=== PATIENT | female | born 2000 | race African-American/Black ===

== ENCOUNTER 2024-09-18 15:38 | Emergency (ER) | payer OTHER, SELFPAY ==
--- NOTE | ~2024-09-18 | XR_ITS ---
CHEST RADIOGRAPH, PA AND LATERAL CLINICAL HISTORY: dizziness . COMPARISON: 02/08/2023 TECHNIQUE: PA and lateral views of the chest. FINDINGS The cardiomediastinal silhouette is unremarkable. The lungs are clear. S-shaped curvature of the thoracolumbar spine is identified. IMPRESSION: No focal infiltrate or effusion. Reviewed, dictated and finalized at location A.
[2024-09-18 15:55] VITALS: BP 141/80; PULSE 86; RESP 17; TEMP 36.6; O2SAT 100
--- NOTE | 2024-09-18 16:38 | ED.WEAKNESS ---
HPI - Weakness General Chief complaint: Weakness <Kassandra Whitlock PA-C - Last Filed: 09/20/24 10:21> Stated complaint: Feeling weak and dizzy with diff walking <Kassandra Whitlock PA-C - Last Filed: 09/20/24 10:21> Time Seen by Provider: 09/18/24 16:38 <Kassandra Whitlock PA-C - Last Filed: 09/20/24 10:21> Focused HPI: This is a 24 year old female that presents to the ER for lightheadedness. Feels nauseous, unsteady on her feet, dizzy. Reports history of anemia and concerned her hemoglobin is low. Reports history of blood transfusions. Reports she has von Willebrand disease. Reports she sees a mother tester at [facility] for this. GENERAL: Well-appearing, well-nourished, and in no acute distress. HEAD: Normocephalic, atraumatic. CHEST: Clear to auscultation. ?No respiratory distress. HEART: Regular rate and rhythm.? NEURO: ?Alert and oriented x3. Patient screened in triage and initial orders placed.? ?Additional care and disposition to be based upon?diagnostic testing and treatment. <Kassandra Whitlock PA-C - Last Filed: 09/20/24 10:21> Focused HPI: This is a 24 year old female that presents to the ER for lightheadedness. Feels nauseous, unsteady on her feet, dizzy. Reports history of anemia and concerned her hemoglobin is low. Reports history of blood transfusions. Reports she has Von Willebrand disease. Reports she sees a mother tester at [facility] for this. GENERAL: Well-appearing, well-nourished, and in no acute distress. HEAD: Normocephalic, atraumatic. CHEST: Clear to auscultation. ?No respiratory distress. HEART: Regular rate and rhythm.? NEURO: ?Alert and oriented x3. Patient screened in triage and initial orders placed.? ?Additional care and disposition to be based upon?diagnostic testing and treatment. <Viv Moreno APRN - Last Filed: 09/18/24 19:49> History of Present Illness HPI Narrative: I agree with the HPI above. <Viv Moreno APRN - Last Filed: 09/18/24 19:49> Related Data Allergies/Adverse reactions: Allergies Allergy/AdvReac Type Severity Reaction Status Date / Time No Known Allergies Allergy Verified 09/18/24 15:40 <Kassandra Whitlock PA-C - Last Filed: 09/20/24 10:21> Review of Systems Review of Systems: All systems reviewed & are unremarkable except as noted in HPI and below <Viv Moreno APRN - Last Filed: 09/18/24 19:49> PMFSH Past Medical History Medical History: Medical History (Updated 09/20/24 @ 10:21 by Kassandra Whitlock PA-C) History of von Willebrand disease <Kassandra Whitlock PA-C - Last Filed: 09/20/24 10:21> Exam Narrative: GENERAL: Well appearing, well-nourished, non-toxic, in no acute distress. HEAD: Normocephalic, atraumatic. NECK: Supple. No adenopathy, no masses. RESPIRATORY: Airway patent, respirations nonlabored. Clear to auscultation bilaterally, no rales, rhonchi, wheezing. CARDIOVASCULAR: Regular rate and rhythm without murmurs, rubs, or gallops. Peripheral pulses 2+ and equal bilaterally. ABDOMINAL: Soft, nontender, nondistended, no hepatosplenomegaly. Normoactive BS. MUSCULOSKELETAL: Moves all extremities. Strength/ROM intact without gross deformities. SKIN: Warm, dry, normal color. No rashes. NEURO: A&O X3. Speech clear. Cranial nerves II-XII intact. No ataxic movements. PSYCHIATRIC: Appropriate mood and affect. Normal interaction. <Viv Moreno, STEPHANIE - Last Filed: 09/18/24 19:49> Course Vital Signs Vital signs: Vital Signs Temperature 97.8 F 09/18/24 15:55 Pulse Rate 86 09/18/24 15:55 Respiratory Rate 17 09/18/24 15:55 Blood Pressure 141/80 H 09/18/24 15:55 Pulse Oximetry 100 09/18/24 15:55 Oxygen Delivery Room Air 09/18/24 15:55 Temperature 97.8 F 09/18/24 15:55 Pulse Rate 92 09/18/24 18:52 Respiratory Rate 17 09/18/24 15:55 Blood Pressure 141/80 H 09/18/24 15:55 Pulse Oximetry 100 09/18/24 15:55 Oxygen Delivery Room Air 09/18/24 15:55 <Kassandra Whitlock PA-C - Last Filed: 09/20/24 10:21> Vital Signs Temperature 97.8 F 09/18/24 15:55 Pulse Rate 86 09/18/24 15:55 Respiratory Rate 17 09/18/24 15:55 Blood Pressure 141/80 H 09/18/24 15:55 Pulse Oximetry 100 09/18/24 15:55 Oxygen Delivery Room Air 09/18/24 15:55 Temperature 97.8 F 09/18/24 15:55 Pulse Rate 92 09/18/24 18:52 Respiratory Rate 17 09/18/24 15:55 Blood Pressure 141/80 H 09/18/24 15:55 Pulse Oximetry 100 09/18/24 15:55 Oxygen Delivery Room Air 09/18/24 15:55 <Viv Moreno APRN - Last Filed: 09/18/24 19:49> MDM - Weakness MDM Narrative Medical decision making narrative: This is a 24 year old female that presents to the ER for lightheadedness. Feels nauseous, unsteady on her feet, dizzy. Reports history of anemia and concerned her hemoglobin is low. Reports history of blood transfusions. Reports she has Von Willebrand disease. Reports she sees a mother tester at [facility] for this. Labs Ordered: CBC, CMP, TSH, type and screen Imaging Ordered: Chest x-ray Medications Ordered: none necessary Results: Patient's chest x-ray indicates The cardiomediastinal silhouette is unremarkable. The lungs are clear. S-shaped curvature of the thoracolumbar spine is identified. Diagnosis: Generalized weakness Patient Education/Shared MDM: Results has lab work and imaging shared with patient. Patient strongly advised to maintain hydration status upon discharge and follow-up with her PCP and Hematology as soon as possible. She will not be discharged home with any new prescriptions. Strict return precautions provided. Patient verbalized understanding and is in agreement with plan. Vital signs stable at time of discharge. All questions answered. <Viv Moreno APRN - Last Filed: 09/18/24 19:49> Differential Diagnosis Differential diagnosis: Likely anemia, hypothyroidism and dehydration <Viv Moreno APRN - Last Filed: 09/18/24 19:49> Lab Data Attestation: I reviewed the patient's lab results. <Viv Moreno, STEPHANIE - Last Filed: 09/18/24 19:49> Result diagrams: 09/18/24 17:20 09/18/24 17:20 <Kassandra Whitlock PA-C - Last Filed: 09/20/24 10:21> Labs: Lab Results 09/18/24 09/18/24 09/18/24 Range/Units 17:20 18:03 18:46 WBC 8.0 (4.5-10.0) K/mm3 RBC 4.56 (4.2-5.4) M/mm3 Hgb 12.3 (12.0-15.0) g/dL Hct 38.8 (37.0-47.0) % MCV 85.1 (80-100) fl MCH 27.0 (26-34) pg MCHC 31.7 L (32-36) g/dl RDW 13.2 (11.5-14.5) % Plt Count 274 (150-375) k/mm3 MPV 10.5 H (7.4-10.4) fl Immature Gran % (Auto) 0.2 (0-0.5) % Neut % (Auto) 59.2 (45.5-73.1) % Lymph % (Auto) 32.6 (18.3-44.2) % Corson % (Auto) 6.1 (2.6-8.5) % Eos % (Auto) 1.4 (0-4.4) % Baso % (Auto) 0.5 (0.2-1.2) % Lymph # (Auto) 2.62 (0.9-3.2) K/mm3 Corson # (Auto) 0.5 (0.1-0.6) K/mm3 Eos # (Auto) 0.1 (0-0.3) K/mm3 Baso # (Auto) 0.0 (0.0-0.1) K/mm3 Abs Immat Gran (auto) 0.02 (0.00-0.031) K/mm3 Absolute Neuts (auto) 4.8 (1.3-6.7) K/mm3 Absolute Nucleated RBC 0.000 (0.0-0.012) K/mm3 Nucleated RBC % 0.0 (0.0-0.2) % Sodium 138 (137-145) mmol/L Potassium 3.8 (3.4-5.0) mmol/L Chloride 102 (98-107) mmol/L Carbon Dioxide 26 (22-30) mmol/L Anion Gap 10 (4-12) mmol/L BUN 10 (7-17) mg/dL Creatinine 0.64 L (0.7-1.0) mg/dL Estim Creat Clear Calc 102 ml/min Estimated GFR > 60 (59 - ) Glucose 90 (65-110) mg/dL Calcium 9.4 (8.4-10.2) mg/dL Total Bilirubin 0.3 (0.2-1.3) mg/dL AST 25 (14-36) U/L ALT 22 (6-35) U/L Alkaline Phosphatase 70 (38-126) U/L Total Protein 9.0 H (6.3-8.2) g/dL Albumin 4.8 (3.5-5.1) g/dL TSH (Reflex) 1.150 (0.465-4.68) uIU/mL Influenza A (RT-PCR) Negative (Negative) Influenza B (RT-PCR) Negative (Negative) RSV (RT-PCR) Negative (Negative) SARS-CoV-2 RNA (RT-PCR) Negative (Negative) Blood Type A Positive Antibody Screen Negative <Kassandra Whitlock PA-C - Last Filed: 09/20/24 10:21> Lab Results 09/18/24 09/18/24 09/18/24 Range/Units 17:20 18:03 18:46 WBC 8.0 (4.5-10.0) K/mm3 RBC 4.56 (4.2-5.4) M/mm3 Hgb 12.3 (12.0-15.0) g/dL Hct 38.8 (37.0-47.0) % MCV 85.1 (80-100) fl MCH 27.0 (26-34) pg MCHC 31.7 L (32-36) g/dl RDW 13.2 (11.5-14.5) % Plt Count 274 (150-375) k/mm3 MPV 10.5 H (7.4-10.4) fl Immature Gran % (Auto) 0.2 (0-0.5) % Neut % (Auto) 59.2 (45.5-73.1) % Lymph % (Auto) 32.6 (18.3-44.2) % Cors[place] % (Auto) 6.1 (2.6-8.5) % Eos % (Auto) 1.4 (0-4.4) % Baso % (Auto) 0.5 (0.2-1.2) % Lymph # (Auto) 2.62 (0.9-3.2) K/mm3 Corson # (Auto) 0.5 (0.1-0.6) K/mm3 Eos # (Auto) 0.1 (0-0.3) K/mm3 Baso # (Auto) 0.0 (0.0-0.1) K/mm3 Abs Immat Gran (auto) 0.02 (0.00-0.031) K/mm3 Absolute Neuts (auto) 4.8 (1.3-6.7) K/mm3 Absolute Nucleated RBC 0.000 (0.0-0.012) K/mm3 Nucleated RBC % 0.0 (0.0-0.2) % Sodium 138 (137-145) mmol/L Potassium 3.8 (3.4-5.0) mmol/L Chloride 102 (98-107) mmol/L Carbon Dioxide 26 (22-30) mmol/L Anion Gap 10 (4-12) mmol/L BUN 10 (7-17) mg/dL Creatinine 0.64 L (0.7-1.0) mg/dL Estim Creat Clear Calc 102 ml/min Estimated GFR > 60 (59 - ) Glucose 90 (65-110) mg/dL Calcium 9.4 (8.4-10.2) mg/dL Total Bilirubin 0.3 (0.2-1.3) mg/dL AST 25 (14-36) U/L ALT 22 (6-35) U/L Alkaline Phosphatase 70 (38-126) U/L Total Protein 9.0 H (6.3-8.2) g/dL Albumin 4.8 (3.5-5.1) g/dL TSH (Reflex) 1.150 (0.465-4.68) uIU/mL Influenza A (RT-PCR) Negative (Negative) Influenza B (RT-PCR) Negative (Negative) RSV (RT-PCR) Negative (Negative) SARS-CoV-2 RNA (RT-PCR) Negative (Negative) Blood Type A Positive Antibody Screen Negative <Viv Moreno APRN - Last Filed: 09/18/24 19:49> Imaging Data Attestation: I personally reviewed and interpreted this imaging study as follows: <Viv Moreno APRN - Last Filed: 09/18/24 19:49> Radiologist's impression: Impressions Chest X-Ray 09/18/24 17:04 IMPRESSION: No focal infiltrate or effusion. <Viv Moreno APRN - Last Filed: 09/18/24 19:49> Critical Care Time Critical Care Time Critical Care Time: No <Kassandra Whitlock PA-C - Last Filed: 09/20/24 10:21> Discharge Plan Discharge Clinical Impression: Weakness generalized <AUDREY Marquez Last Filed: 09/20/24 10:21> Patient Disposition: Home <Kassandra Whitlock PA-C - Last Filed: 09/20/24 10:21> Condition: Stable <Kassandra Whitlock PA-C - Last Filed: 09/20/24 10:21> Instructions: Antibiotic Form, Fatigue (ED) <AUDREY Marquez Last Filed: 09/20/24 10:21> Additional Instructions: Please return to the ER with any worsening symptoms. Follow-up with primary care provider as soon as possible. Take all medications as prescribed, including regularly scheduled medications. <AUDREY Marquez Last Filed: 09/20/24 10:21> Patient Language: Thai <AUDREY Marquez Last Filed: 09/20/24 10:21> Follow-up/Referrals: PHYSICIAN NOT ON STAFF,NONSTAFF [Primary Care Provider] - <Kassandra Whitlock PA-C - Last Filed: 09/20/24 10:21> Stand Alone Forms: Work/School Release IP <Kassandra Whitlock PA-C - Last Filed: 09/20/24 10:21> Time of Disposition: 19:46 <Kassandra Whitlock PA-C - Last Filed: 09/20/24 10:21> 19:46 <Viv Moreno APRN - Last Filed: 09/18/24 19:49>
--- NOTE | 2024-09-18 16:39 | ECG_ITS ---
Test Date: 2024-09-18 18:01:34 Measurements Intervals Douglas Rate: 83 P: 66 LA: 125 QRS: 17 QRSD: 75 T: 30 QT: 335 QTc: 395 Interpretive Statements SINUS RHYTHM WITH SINUS ARRHYTHMIA No previous ECG available for comparison Electronically Signed On 09-19-2024 10:05:27 CDT by Alex Echols M.D.
[2024-09-18 17:35] LABS: Basophils Percent Auto 0.5 % (0.2-1.2); Eosinophils Absolute Auto 0.1 K/mm3 (0-0.3); Eosinophils Percent Auto 1.4 % (0-4.4); Hematocrit 38.8 % (37.0-47.0); Hemoglobin 12.3 g/dL (12.0-15.0); Immature Granulocyte Absolute 0.02 K/mm3 (0.00-0.031); Immature Granulocyte Percent A 0.2 % (0-0.5); Lymphocytes Absolute Auto 2.62 K/mm3 (0.9-3.2); Lymphocytes Percent Auto 32.6 % (18.3-44.2); Mean Corpuscular HGB Conc 31.7 g/dl (32-36); Mean Corpuscular Volume 85.1 fl (80-100); Mean Platelet Volume 10.5 fl (7.4-10.4); Monocytes Absolute Auto 0.5 K/mm3 (0.1-0.6); Monocytes Percent Auto 6.1 % (2.6-8.5); Neutrophils Absolute Auto 4.8 K/mm3 (1.3-6.7); Neutrophils Percent Auto 59.2 % (45.5-73.1); Platelet Count Result 274 k/mm3 (150-375); Red Blood Count 4.56 M/mm3 (4.2-5.4); Red Cell Distribution Width 13.2 % (11.5-14.5)
[2024-09-18 17:46] LABS: Alanine Aminotransferase 22 U/L (6-35); Albumin Level 4.8 g/dL (3.5-5.1); Alkaline Phosphatase 70 U/L (38-126); Anion Gap 10 mmol/L (4-12); Aspartate Amino Transferase 25 U/L (14-36); Bilirubin,Total 0.3 mg/dL (0.2-1.3); Blood Urea Nitrogen 10 mg/dL (7-17); Calcium 9.4 mg/dL (8.4-10.2); Carbon Dioxide 26 mmol/L (22-30); Chloride 102 mmol/L (98-107); Estimated CRCL calculation 102 ml/min; Estimated Glomerular Filt Rate > 60; Glucose 90 mg/dL (65-110); Potassium 3.8 mmol/L (3.4-5.0); Sodium 138 mmol/L (137-145)
--- OUTSIDE RECORDS SUMMARY | 2024-09-18 17:57 | XMS_ITS | Encounter Summary ---
Author Organization [facility] Address [address] [facility] [place] [address] Support Name Relationship Address Phone Pt. Val Sevilla Personal Relationship [address] [place] [address] Emma Sevilla Personal Relationship [address] [place] [address] Care Team Providers Care Dermatology Specialist Name Role Phone Josesito Clark MD Primary Care Provider Yajaira Zarate DO Unavailable [phone] Tayo Stewart MD Primary Care Provider [phone] Yajaira Zarate DO Primary Care Provider [phone] Tayo Stewart MD Primary Care Provider [phone] Carolyn Maynard MD Unavailable Tayo Stewart MD Primary Care Provider [phone] Encounter Details Date Type Department Care Team (Late st Contact Info) Description 12/05/2014 Telephone [facility] Pediatrics - [facility] [address] [place] [phone] Josesito Clark MD [address] [place] [phone] Social History Tobacco Use Types Packs/Day Years Used Date Smoking Tobacco: Never Alcohol Use Standard Drinks/Week Comments No 0 (1 standard drink = 0.6 oz pur e alcohol) Comments No Sex and Gender Information Value Date Recorded Sex Assigned at Not on file Legal Sex Female 12:54 PM CDT Gender Identity Not on file Sexual Orientation Not on file 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 Not on file Not on file Not on file documented as of this encounter Plan of Treatment Not on file documented as of this encounter Visit Diagnoses Not on filedocumented in this encounter Care Teams Dermatology Specialist Relationship Specialty Start Date End Date Josesito Clark MD [address] [place] [phone] PCP - General Pediatrics 11/11/14 10/12/15 Tayo Stewart MD [address] [place] [id number] PCP - General Pediatrics 10/13/15 01/04/16 Yajaira Zarate DO [address] [place] [phone] PCP - General Student Resident 01/05/16 04/03/16 Tayo Stewart MD [address] [place] [id number] PCP - General Pediatrics 04/04/16 10/08/18 Tayo Stewart MD [address] [place] [id number] PCP - General Pediatrics 10/09/18 09/28/21 Yajaira Zarate DO [address] [place] [phone] Resident Student Resident 11/11/14 11/29/16 Carolyn Maynard MD [address] [place] [phone] Resident Student Resident 11/30/16 09/29/21 documented as of this encounter
--- OUTSIDE RECORDS SUMMARY | 2024-09-18 17:57 | XMS_ITS | Encounter Summary ---
Author Organization [facility] Address [address] [facility] [address] Support Name Relationship Address Phone Pt. Val Sevilla Personal Relationship [address] [place] [address] Emma Sevilla Personal Relationship [address] [place] [address] Care Team Providers Care Nutrition Technician Name Role Phone Carolyn Maynard MD Unavailable Tayo Stewart MD Primary Care Provider [phone] Reason for Visit * Reason Onset Date Comments Results 10/15/2018 Encounter Details Date Type Department Care Team (Late st Contact Info) Description 10/15/2018 Telephone [facility] Pediatrics - [facility] [address] [place] [id number] Tayo Stewart MD [address] [place] [phone] Results Social History Tobacco Use Types Packs/Day Years Used Date Smoking Tobacco: Never Smokeless Tobacco: Never Alcohol Use Standard Drinks/Week Comments [...] on file documented as of this encounter Miscellaneous Notes * Telephone Encounter - Kathi Romero - 10/15/2018 2:52 PM CDT Val Sevilla's mother is calling for lab results collected on 10/10/18. Call back number verified. Requested to speak to Dr. Stewart, informed mom that the first available provider would reach out to go over results. documented in this encounter Plan of Treatment Not on file documented as of this encounter Visit Diagnoses Not on filedocumented in this encounter Care Teams Nutrition Technician Relationship Specialty Start Date End Date Tayo Stewart MD [address] [place] [phone] PCP - General Pediatrics 10/09/18 09/28/21 Carolyn Maynard MD [address] [place] [phone] Resident Student Resident 11/30/16 09/29/21 documented as of this encounter
--- OUTSIDE RECORDS SUMMARY | 2024-09-18 17:57 | XMS_ITS | Encounter Summary ---
Author Organization [facility] Address [address] [place] [address] Support Name Relationship Address Phone Pt. Val Sevilla Personal Relationship [address] [place] [address] Emma Sevilla Personal Relationship [address] [place] [address] Care Team Providers Care Powder Press Operator Name Role Phone Tayo Stewart MD Primary Care Provider [phone] Carolyn Maynard MD Unavailable Tayo Stewart MD Primary Care Provider [phone] Reason for Visit * Reason Onset Date Comments Refill Request 12/01/2017 Encounter Details Date Type Department Care Team (Late st Contact Info) Description 12/01/2017 Refill [facility] - [facility] [address] [place] [address] Tayo Stewart MD [address] [place] [phone] Refill Request Social History Tobacco Use Types Packs/Day Years [...] encounter Miscellaneous Notes * Telephone Encounter - To, Debi Platt MD - 12/01/2017 4:08 PM CDT Called mother to discuss medication. Val has been on topamax for many years for her migraine headaches and it has been well controlled with minimal side effects. Prescription refilled. Patient hasfollow up with Dr. Stewart in 20 days. Debi Ryan MD 12/01/2017 4:08 PM * Telephone Encounter - Christopher Burton - 12/01/2017 3:42 PM CDT Pharmacy fax request received. Medication(s) to be refilled: topiramate (TOPAMAX) 25 MG tablet Last well child check up: 12/08/17 Pharmacy verified in [facility]. Future Appointments Date Time Provider Department Center 12/11/2017 8:20 AM Tayo Stewart MD [id number] documented in this encounter Plan of Treatment Not on file documented as of this encounter Visit Diagnoses Not on filedocumented in this encounter Care Teams Powder Press Operator Relationship Specialty Start Date End Date Tayo Stewart MD [address] [place] [phone] PCP - General Pediatrics 04/04/16 10/08/18 Tayo Stewart MD [address] [place] [phone] PCP - General Pediatrics 10/09/18 09/28/21 Carolyn Maynard MD [address] [place] [phone] Resident Student Resident 11/30/16 09/29/21 documented as of this encounter
--- OUTSIDE RECORDS SUMMARY | 2024-09-18 17:57 | XMS_ITS | Clinical Summary ---
Author Organization [facility] C Address [address] [place] [address] Care Team Providers Care Curing Press Maintainer Name Role Phone Michelle Valentino MD Primary Care Pro vider MalecekMariela MD Unavailable [phone] Allergies No known active allergies Medications SUMAtriptan (IMITREX) 50 mg tabletIndications :Migraine Take 1 tablet (50 mg total) by mouth once as needed for migraine (headache) May repeat one time after 2 hours if needed. 9 tablet 5 4 11/13/19 25 Active ketorolac (TORADOL) 10 mg tabletIndications :Postoperative Acute Pain Take 1 tablet (10 mg total) by mouth every 6 (six) hours as needed for pain Take 2 pills one hour prior to procedure, then use as directed for post-procedur al pain. 20 tablet 3 4 Active fremanezumab-vfrm (Ajovy Autoinjector) 225 mg/1.5 mL auto-injector subcutaneous auto-injectorIndi cations:Migraine without aura and without status migrainosus, not intractable Inject 1.5 mL (225 mg total) under the skin every 30 (thirty) days 1.5 mL 4 5 Active sertraline (Zoloft) 50 mg tabletIndications :Anxiety with Depression,depres emiliano Take 1 tablet (50 mg total) by mouth daily 90 tablet 1 5 Active Hospital, Clinic, or Other Facility Administered Medication Ordered Dose Route Frequency Start Date End Date Status levonorgestreL (MIRENA) 21 mcg/24 hours (8 yrs) 52 mg IUDIndications:Preg natalia Contraception intrauterine Continuous (implanted device) 01/17/2023 Active Active Problems Problem Noted Date Diagnosed Date Foot deformity, bilateral 06/03/2024 Assessment & Plan (06/03/2024 6:48 PM TELEVISION SCHEDULE COORDINATOR): Refer to orthopedics, Dr. Isbell Bilateral bunions 06/03/2024 Assessment & Plan (06/03/2024 6:48 PM TELEVISION SCHEDULE COORDINATOR): Plan as above Generalized anxiety disorder 03/27/2024 Assessment & Plan (03/27/2024 8:20 AM TELEVISION SCHEDULE COORDINATOR): Chronic, uncontrolled. Start lexapro 5 mg daily. Discussed side effects and 4-6 week timeframe to see full benefit. She is due for a physical in May. She will plan to follow up then. She is also requesting testing accommodations for school, referral to psychiatry for further evaluation and management to determine what accommodations are necessary. Right knee pain 04/27/2022 Assessment & Plan (05/25/2022 9:45 AM TELEVISION SCHEDULE COORDINATOR): Follow-up with Orthopedics Assessment & Plan (04/27/2022 9:53 PM TELEVISION SCHEDULE COORDINATOR): Worsening pain. Suspect meniscal tear or injury. Check x ray and refer to sports medicine/ orthopedics at [facility] Iron deficiency anemia due to chronic blood loss 01/03/2022 Routine medical exam 05/22/2021 Assessment & Plan (06/03/2024 6:48 PM TELEVISION SCHEDULE COORDINATOR): Plan as above Assessment & Plan (06/12/2023 3:55 PM TELEVISION SCHEDULE COORDINATOR): Patient recommended exercise regularly, eat a nutritional diet. Take medications as prescribed. Labs/urine for completion. Declined scheduling 1 year apt. Assessment & Plan (05/25/2022 9:46 AM TELEVISION SCHEDULE COORDINATOR): Reviewed health maintenance issues- diet, exercise, safety issues, smoking status, alcohol use, immunizations, mammogram (if over age 40), and Pap smear. Reviewed medical problems and list of medications Assessment & Plan (05/22/2021 10:57 AM TELEVISION SCHEDULE COORDINATOR): Reviewed health maintenance issues- diet, exercise, safety issues, smoking status, alcohol use, immunizations, breast exam, papsmear, Reviewed medical problems and medication list. BMI 26.0-26.9,adult 05/22/2021 Assessment & Plan (05/25/2022 8:51 AM TELEVISION SCHEDULE COORDINATOR): BMI Follow-up includes: nutrition counseling, exercise counseling and education provided. Assessment & Plan (04/27/2022 9:53 PM TELEVISION SCHEDULE COORDINATOR): Reviewed diet- decrease caloric intake, decrease portion size, avoid snacking, and exercise most days of the week with regular walking as tolerated. Assessment & Plan (05/22/2021 10:57 AM TELEVISION SCHEDULE COORDINATOR): Reviewed diet- decrease caloric intake, decrease portion size, avoid snacking, and exercise most days of the week with regular walking as tolerated. Positive depression screening 04/08/2020 Overview (10/06/2020): PHQ9 score is 11, negative SI Last Assessment & Plan: Tito's PHQ-9 today in clinic was elevated, and she stated seh has more sad days than happy days. She denies any suicidal ideation or thoughts of self-harm. She is plugged in with resources at school, and feels comfortable continuing with those resources. Plan: - continue current resources - return to clinic if any further concerns arise Rash of foot 04/08/2020 Overview (10/06/2020): Last Assessment & Plan: Tito's rash on her feet is more consistent with dry skin than a fungal infection. This is evidenced by physical exam and history that the rash has gotten better with the use of vaseline. Plan: Continue vaseline use Abdominal pain, bilateral upper quadrant 020 Overview (10/06/2020): Last Assessment & Plan: ~2 week hx of bilateral upper quadrant abdominal tenderness and fullness. Most likely due to anxiety concerns, perhaps related to restarting OCPs ~3 weeks ago. No masses noted on exam. Unlikely to be PUD given no report of blood in stool, also without symptoms of fatigue or pallor on exam to suggest anemia. Plan: -Reconnect with counselor -Contacted counseling and given list of community resources for help with anxiety -Follow up if pain/fullness does not resolve. -Screening CBC Anxiety 11/22/2019 Overview (10/06/2020): Last Assessment & Plan: Tito has a long hx of anxiety. She feels anxious most days. When her anxiety worsens, she sometimes feels chest pain and palpitations. They are relieved by resting and deep breathing. She was seen by cardiology in 10/2018 and no cardiac concerns were noted. Chest pain seems most likely to be caused by anxiety. Current abdominal pain is likely also related to anxiety, and is likely a psychosomatic symptoms. She has seen a counselor which has been helpful but it has been several months since she met with him. Plan: -Reconnect with counselor -Referral to counseling center for additional resources. Assessment & Plan (06/12/2023 3:46 PM TELEVISION SCHEDULE COORDINATOR): Chronic problem: Patient recommended to continue Effexor as prescribed. Monitor for concerns. Von Willebrand disease, type I 12/11/2017 Overview (10/06/2020): Last Assessment & Plan: Nosebleeds have resolved. Has not had bleeding issues for months. Takes DDAVP when bleeding occurs. Plan: -Continue to monitor -DDAVP PRN bleeding Assessment & Plan (06/12/2023 3:48 PM TELEVISION SCHEDULE COORDINATOR): Chronic problem: Patient to follow with Hematology, Dr. Gutierrez as recommended Assessment & Plan (05/25/2022 9:46 AM TELEVISION SCHEDULE COORDINATOR): Follow-up with Hematology Assessment & Plan (05/22/2021 10:58 AM TELEVISION SCHEDULE COORDINATOR): Continue DDAVP; follow up with heme-oncology Accommodative component in esotropia 07/14/2017 Migraine headache without aura 03/06/2014 Overview (10/06/2020): Last Assessment & Plan: Well controlled with topamax. Not taking maxalt due to lack of breakthrough migraines. Assessment & Plan (11/13/2023 12:30 PM CDT): The patient is a 23-year-old Afro-Surinamese female with migraine headaches. At this point she is doing well when she does remember to take the Ajovy. She uses sumatriptan and Toradol for rescue purposes. We are not going to make any changes today though we did discuss dosing options. I will plan on seeing her back in 6 months. This visit required complex medical management through an ongoing care relationship with the patient. Assessment & Plan (06/12/2023 3:47 PM TELEVISION SCHEDULE COORDINATOR): Chronic problem: Follow with Neurology, Dr. Gongora and take Imitrex, Ajovy as prescribed. Monitor for concerns Assessment & Plan (11/28/2022 3:10 PM CDT): The patient is a 22-year-old Afro-Surinamese female with migraine headaches. At this point she is failed Topamax and venlafaxine. I am going to try her on Ajovy. I went ahead and gave her 1st sample today. I will see her back in a couple months. Assessment & Plan (06/02/2022 8:38 AM TELEVISION SCHEDULE COORDINATOR): The patient is a 22-year-old female with migrainous headaches occurring 1-2 times per week. At this point she is been intolerant of Topamax. Because of her youth and relatively low blood pressure, I am going to try to avoid beta-blockers. Because of her abnormal sleep wake schedule we will also avoid tricyclic antidepressants. I am going to try her on low-dose venlafaxine. We went over the side effect profile. If she has any adverse effect I recommended she simply discontinue it. In that case, we will likely try her on ACGRP blocking medication like Aimovig. I am given her sumatriptan 50 mg tablets to try for rescue purposes. I will see her back in a few months though I encouraged her to contact me in the interim with any concerns or questions. Assessment & Plan (05/22/2021 10:58 AM TELEVISION SCHEDULE COORDINATOR): Continue current medications and call if problems or side effects. WC (well child check) 03/06/2014 Overview (10/06/2020): Last Assessment & Plan: Tito Sevilla is here for her adolescent well child check and has normal growth with good interval weight gain and normal development. Immunizations up to date Dental referral for prevention Age appropriate anticipatory guidance provided Return in about 1 year (around 11/21/2020) for annual adult visit. Discussed transition to adult medicine provider HIV, chlamydia, gonorrhea screening Pes planus 09/30/2013 Overview (10/06/2020): Last Assessment & Plan: Tito has pes planus of both feet, for which she had surgery at age 10. Feels as though the curvature is getting worse again. It does not hurt or get in the way of activities. Plan: - referral to orthopedics Hyperopia 10/21/2011 Overview (10/06/2020): Last Assessment & Plan: Followed by [facility] ophtho and sees seo coordinator for other vision problems. Wears glasses. Immunizations Immunization Administration Dates Next Due DTaP 09/22/2004, 2,2000,06/09,2000 Flucelvax Influenza Quad 03/02/2019 HPV, Quadrivalent 12/04/2014,03/06/2014 HPV9 10/13/2015 Hep A, Pediatric 03/11/2013,10/14/2008 Hep B Vaccine 02/21/2023 Hep B, Adolescent or Pediatric 2000,1999,2000 Hib (PRP-D) 12/24/2001, 1,2000,03/27 IPV 09/22/2004, 2,2000,03/27 Influenza, Quadrivalent, Lexis l Culture-based MDCK, Preservative Free, Antibiotic Free, Intramuscular 04/13/2022,04/10/2021,04/04/2020 Influenza, Quadrivalent, Spl it, Preservative Free, Intramuscular 03/17/2023,03/10/2017,05/05/2016,03/06 Influenza, Trivalent, Cell Culture-based MDCK, Preservative Free, Antibiotic Free, Intramuscular 04/13/2022,04/10/2021,04/04/2020,03/02 Influenza, Trivalent, Preser vative Free, Intramuscular 03/07/2024 Influenza, Unspecified 03/15/2023(Deferr ed: Patient Refused),04/13/2022,04/28/2021, 013 MMR 09/22/2004,05/24/2001 Meningococcal MCV4P (Menactra) 12/08/2016 Meningococcal Polysaccharide (Menomune) 12/22/2010 PPD TEST 05/23/2007, 8,06/09/2005,06/09 Pneumococcal Conjugate 7-Valent 2000,07/03,2000 Pneumococcal Conjugate, Unspecified 2000,0 2000,2000 Tdap 12/04/2020,12/22/2010 Varicella 10/14/2008,01/08/2001 Surgical History Surgery Date Site/Laterality Comments FOOT SURGERY 05/15/2009 - 05/14/2010 Bilateral Medical History Medical History Date Comments GERD (gastroesophageal reflux disease) Migraine headache Scoliosis Von Willebrand disease (HCC) Anxiety Anemia Von Willebrand disease (HCC) Family History Medical History Relation Name Comments Nephrolithiasis Father Aneurysm Maternal Grandfather Kidney disease Maternal Grandmother Hyperlipidemia Mother Hypertension Mother Scoliosis Sister Relation Name Status Comments Father Alive Maternal Grandfather Maternal Grandmother Alive Mother Alive Sister Alive Social History Tobacco Use Types Packs/Day Years Used Date Smoking Tobacco: Never Smokeless Tobacco: Never Tobacco Cessation:Counseling Given: Not Answered AUDIT-C Answer Date Recorded Q1: How often do you have a drink containing alc ohol? 2-3 times a week 06/02/2022 Q2: How many drinks containi ng alcohol do you have on a typical day when you are drinking? 1 or 2 06/02/2022 Q3: How often do you have si x or more drinks on one occasion? Never 06/02/2022 PHQ-2 Answer Date Recorded PHQ-2 Total Score (If total score is 3 or more points, staff should administer the PHQ-9) 0 06/03/2024 Personal Safety Answer Date Recorded Getting School Help Needed Denies 04/26 Comments No Sex and Gender Information Value Date Recorded Sex Assigned at Not on file Legal Sex Female 2:43 AM TELEVISION SCHEDULE COORDINATOR Gender Identity Not on file Sexual Orientation Not on file Obstetrics History Last Filed Vital Signs Vital Sign Reading Time Taken Comments Blood Pressure 143/70 06/18/2024 2:37 PM TELEVISION SCHEDULE COORDINATOR Pulse 87 06/18/2024 2:37 PM TELEVISION SCHEDULE COORDINATOR Temperature 37 C (98.6 F) 06/18/2024 2:37 PM TELEVISION SCHEDULE COORDINATOR Respiratory Rate 16 06/18/2024 2:37 PM TELEVISION SCHEDULE COORDINATOR Oxygen Saturation 95% 06/18/2024 2:37 PM TELEVISION SCHEDULE COORDINATOR Inhaled Oxygen Concentration - - Weight 73.6 kg (162 lb 3.2 oz) 06/18/2024 2:37 P M TELEVISION SCHEDULE COORDINATOR Height 157.5 cm (5' 2 ) 06/18/2024 2:37 PM TELEVISION SCHEDULE COORDINATOR Body Mass Index 29.67 06/18/2024 2:37 PM TELEVISION SCHEDULE COORDINATOR Plan of Treatment Health Maintenance Due Date Last Done Comments Cervical Cancer Screening 2000 Hepatitis C Screening 2000 Covid-19 Vaccine ( season) 2024 05/03/2021, 10/16/2020, 09/18/2020 Depression Screening 06/03/2025 06/03/2024, 05/25/2022, 05/21/2021 Regular Well Visit/Exam 18-64 06/03/2025 06/03/2024, 06/12/2023, 05/25/2022, Additional history exists DTaP/Tdap/Td Vaccine (8 - Td or Tdap) 12/04/2030 12/04/2020, 12/22/2010, 09/22/2004, Additional history exists Pneumococcal vaccine <65 Aged Out 001, 2000, 2000, Additional history exists No longer eligible based on patient's age to complete this topic Varicella Vaccines Completed 10/14/2008, 01/08/2001 HPV Vaccines Completed 10/13/2015, 11/13, 03/06/2014 Hepatitis B Screening Completed 02/21/2023 , 2000, 2000, Additional history exists Influenza Vaccine Completed 03/07/2024, , 04/13/2022, Additional history exists Insurance [facility] [facility] [employer] Address: [facility] [address] [place] [address] [address] [facility] [address] [place] [address] [employer] [facility] [employer] [employer] Address: [address] [place] [address] [facility] Care Teams Curing Press Maintainer Relationship Specialty Start Date End Date Michelle Valentino MD [address] [phone] PCP - General Internal Medicine 10/01/18 Mariela Gutierrez MD [address] [place] [address] Medical Oncologist/Early Morning Babysitter Hematology and Oncology 06/14/21
--- OUTSIDE RECORDS SUMMARY | 2024-09-18 17:57 | XMS_ITS | Clinical Summary ---
Author Organization [facility] Address [address] [place] [phone] Care Team Providers Care Chemical Analytical Sampler Name Role Phone Unavailable Primary Care Provider Unavailabl e Social History Tobacco Use Types Packs/Day Years Used Date Smoking Tobacco: Never Assessed Comments Unknown Sex and Gender Information Value Date Recorded Sex Assigned at Not on file Legal Sex Female 8:14 AM INSURANCE ACTUARY Gender Identity Not on file Sexual Orientation Not on file Plan of Treatment Health Maintenance Due Date Last Done Comments Hepatitis C Virus (HCV) Screening 2000 TdaP Immunization 2000 Human Papillomavirus (HPV) Immunization (1 - 3-dose series) 12/31/2014 Hepatitis B Immunization (1 of 3 - 19+ 3-dose series) 12/31/2018 Pap Smear 12/31/2020 Influenza Immunization (#1) 2024 SARS-COV-2 Immunization ( season) 2024 Respiratory Syncytial Virus (RSV) Immunization (Adult) (1 - 1-dose 75+ series) 12/31/2074 Meningococcal Immunization (ACWY) Aged Out No longer eligible based on patient's age to complete this topic Pneumococcal Immunization Combined Aged Out No longer eligible based on patient's age to complete this topic Rotavirus Immunization Aged Out No lo nger eligible based on patient's age to complete this topic
--- OUTSIDE RECORDS SUMMARY | 2024-09-18 17:57 | XMS_ITS | Encounter Summary ---
Author Organization [employer] [facility] Address [address] [place] [address] Care Team Providers Care Screwhead Stoner And Polisher Name Role Phone Unavailable Primary Care Provider Unavailabl e Reason for Visit * Reason Onset Date Comments Dizziness 09/18/2024 Encounter Details Date Type Department Care Team (Late st Contact Info) Description 09/18/2024 Telephone [facility] [place] [address] Doretha Clark ANP [address] [place] [address] Dizziness Social History Tobacco Use Types Packs/Day Years Used Date Smoking Tobacco: Never Assessed Comments Unknown Sex and Gender Information Value Date Recorded Sex Assigned at Not on file Legal Sex Female 11:30 AM CDT Gender Identity Not on file Sexual Orientation Not on file documented as of this encounter Miscellaneous Notes * Telephone Encounter - Doretha Clark ANP - 09/18/2024 2:59 PM CDT Pt presents to office approx 1330, reports dizziness, weakness, requested blood pressure check w/ Amber. Informed by Amber pt would like b/p check, is new pt. Attempted to assist pt to exam room. Upon standing, pt unable to walk on her own 2/2 weakness, dizziness. Closed mason door, talked to pt in chair in waiting room, a/o x 3, discussed meds, HPI. Dizziness/weakness started yesterday but m uch worse today. Reports this is not her first event of this type. Has eaten some, not drank much liquids. Sometimes feels this way when BP is elevated. BP 140/84, O2 sat 99%, HR 95. Pt reports BP about normal for her. Treated for bleeding dz w/ hem/onc, overdue for labs. Thinks iron level very low. Currently studying for MS[employer] finals. Overdue for iron infusion. Encouraged pt to call hem/onc sinceI am unfamiliar with her history. Pt attempted to call, no one available to speak to her. Pt provided water bottle and PB crackers. Advised pt ER w/ difficulty walking, dizziness. Pt reports she feels fine sitting down, needs to use restroom. Pt attempted to stand up alone, unable to stand alone. U nsteady gait. Assisted pt to restroom, upon entering restroom pt states the toilet is a long way away, pt assisted to restroom and hand hygiene. Upon leaving restroom, pt too weak to stand. Assisted to rolling chair. Pt remains a/o x 3. Able to talk on cell phone w/o difficulty. Pt called friend Johnnie to pick her up for ER, insists on car to ER. Advised pt I am not comfortable with her in personal car alone with one other person. 911 summoned by Malissa. graining machine operator states they are having high call volume, ambulance will not respond with lights and sirens but they will come eventually. I discussed w/ watch engine operator w/ pt being unable to walk on her own. Excavating Supervisor states pts with dizziness and vertigo are not a priority, ambulance will come but not with lights and sirens. Agreed with watch engine operator no lights and sirens but would like ambulance JENI. Call placed approx 1353. Pt wheeled into counselor office for privacy. Pt remains in chair, a/o x 3 w/ no s/s distress. Profound weakness remainsbut is able to sit up in chair w/o diff. Pts father arrived at [place] approx 1445, ambulance has not yet arrived. Discussed w/ pt, Johnnie, pts father, and director of pediatric rehabilitation pt now has drank some water, feels a little bit better. Discussed I am not comfortable w/ pt being alone in car w/ sales warehouse driver though pt and father are comfortable w/ him taking her to ER. Pt would like to go to [facility] in [place]. Pt originally declined w/c, advised pt she is not steady to walk out distance to car. Pt assisted to w/cand out to father's truck. Johnnie and pts father assisted pt into truck. Pt buckled in and being taken to ER by father. documented in this encounter Plan of Treatment Not on file documented as of this encounter Visit Diagnoses Not on filedocumented in this encounter
--- OUTSIDE RECORDS SUMMARY | 2024-09-18 17:57 | XMS_ITS | Encounter Summary ---
Author Organization [facility] Address [address] [place] [address] Support Name Relationship Address Phone Pt. Val Sevilla Personal Relationship [address] [place] [address] Emma Sevilla Personal Relationship [address] [place] [address] Care Team Providers Care Supervisor Framing Mill Name Role Phone Josesito Clark MD Primary Care Provider Yajaira Zarate DO Unavailable [phone] Tayo Stewart MD Primary Care Provider [phone] Yajaira Zarate DO Primary Care Provider [phone] Tayo Stewart MD Primary Care Provider [phone] Carolyn Maynard MD Unavailable Tayo Stewart MD Primary Care Provider [phone] Encounter Details Date Type Department Care Team (Late st Contact Info) Description 12/05/2014 Telephone [facility] - [facility] [address] [place] [phone] Josesito Clark MD [address] [place] [phone] Social History Tobacco Use Types Packs/Day [...] on filedocumented in this encounter Care Teams Supervisor Framing Mill Relationship Specialty Start Date End Date Josesito Clark MD [address] [place] [phone] PCP - General Pediatrics 11/11/14 10/12/15 Tayo Stewart MD [address] [place] [phone] PCP - General Pediatrics 10/13/15 01/04/16 Yajaira Zarate DO [address] [place] [phone] PCP - General Student Resident 01/05/16 04/03/16 Tayo Stewart MD [address] [place] [id number] PCP - General Pediatrics 04/04/16 10/08/18 Tayo Stewart MD [address] [place] [phone] PCP - General Pediatrics 10/09/18 09/28/21 Yajaira Zarate DO [address] [place] [phone] Resident Student Resident 11/11/14 11/29/16 Carolyn Maynard MD [address] [place] [phone] Resident Student Resident 11/30/16 09/29/21 documented as of this encounter
--- OUTSIDE RECORDS SUMMARY | 2024-09-18 17:57 | XMS_ITS | Encounter Summary ---
Author Organization [facility] Address [address] [place] [address] Support Name Relationship Address Phone Pt. Val Sevilla Personal Relationship [address] [place] [address] Emma Sevilla Personal Relationship [address] [place] [address] Care Team Providers Care First Crusher Name Role Phone Carolyn Maynard MD Unavailable Tayo Stewart MD Primary Care Provider [phone] Encounter Details Date Type Department Care Team (Late st Contact Info) Description 02/07/2020 Telephone [facility] - [facility] [address] [place] [phone] Tayo Stewart MD [address] [place] [phone] Social History Tobacco Use Types Packs/Day Years [...] on filedocumented in this encounter Care Teams First Crusher Relationship Specialty Start Date End Date Tayo Stewart MD [address] [place] [address] [place] [address] PCP - General Pediatrics 10/09/18 09/28/21 Carolyn Maynard MD [address] [place] [phone] Resident Student Resident 11/30/16 09/29/21 documented as of this encounter
--- OUTSIDE RECORDS SUMMARY | 2024-09-18 17:57 | XMS_ITS | Clinical Summary ---
Author Organization [facility] Address [address] [place] [address] Phone Care Team Providers Care Log Deckman Name Role Phone Unavailable Primary Care Provider Unavailabl e Allergies No known active allergies Medications levonorgestreL (MIRENA) 21 mcg/24hr (up to 8 yrs) 52 mg IUD by Intrauterine route. 3 028 Active omeprazole (PriLOSEC) 20 mg Capsule, Delayed Release(E.C.) TAKE 1 CAPSULE BY MOUTH ONCE DAILY BEFORE BREAKFAST 2 Active fremanezumab-vfr m (Ajovy Syringe) 225 mg/1.5 mL Syringe Inject 225 mg by subcutaneous injection. 4 Active cetirizine (ZyrTEC) 5 mg tablet Take 5 mg by mouth daily. Active ketorolac tromethamine (TORADOL) 10 mg tablet Take 10 mg by mouth. 4 Active tranexamic acid (LYSTEDA) 650 mg Tablet tablet Take 1,300 mg by mouth. 3 Active venlafaxine (EFFEXOR XR) 37.5 mg Extended Release 24 hour capsule Take 37.5 mg by mouth daily. 3 Active topiramate (TOPAMAX) 25 mg tablet Take 1 Tablet by mouth 2 times daily. 2 Active SUMAtriptan (IMITREX) 50 mg tablet Take 50 mg by mouth. 4 025 Active Active Problems No known active problems Encounters Date Type Department Care Team Description 09/18/2024 Telephone [facility] [employer] [address] [place] [phone] Doretha Clark, ANIYA Dizziness 08/27/2024 External Device Data [facility] ABSTRACTION Provider, Abstract 07/31/2024 External Device Data [facility] ABSTRACTION Provider, Abstract 07/31/2024 External Device Data [facility] ABSTRACTION Provider, Abstract 07/20/2024 External Device Data [facility] ABSTRACTION Provider, Abstract 07/19/2024 External Device Data [facility] ABSTRACTION Provider, Abstract 07/16/2024 External Device Data [facility] ABSTRACTION Provider, Abstract 07/02/2024 External Device Data [facility] ABSTRACTION Provider, Abstract from Last 3 Months Immunizations Immunization Administration Dates Next Due (ADACEL/BOOSTRIX)(10 YR UP) TDAP VACCINE, 0.5ML, IM 12/04/2020,12/22/2010 (GARDASIL 9)(9-45 YRS) HUMAN PAPILLOMAVIRUS VACCINE, TYPES 6, 11, 16, 18, 31, 33, 45, 52, 58, NONAVALENT (9VHPV), 2 OR 3 DOSE, IM 10/13/2015 (GARDASIL)(9-45 YRS) HUMAN PAPILLOMAVIRUS VACCINE, TYPES 6, 11, 16, 18, QUADRIVALENT (4VHPV), 3 DOSE, IM 12/04/2014,03/06/2014 (HAVRIX/VAQTA)(12 MO-18 YRS) HEPATITIS A VACCINE 0.5 ML PED/ADOL 2 DOSE, IM 03/11/2013,10/14/2008 (INFANRIX)(6 WKS-6 YRS) DIPT HERIA, TETANUS TOXOIDS, AND ACCELLULAR PERTUSSIS VACCINE (DTAP), 0.5 ML IM 09/22/2004,12/24/2001,2000,06/09,2000 (IPOL)(6 WKS AND UP) POLIOVI KRISSY VACCINE, INACTIVATED (IPV), 3 DOSE, SUBCUT OR IM 09/22/2004,12/24/2001,2000,03/27 (M-M-R II/PRIORIX)(12 MO UP) MEASLES, MUMPS AND RUBELLA VIRUS VACCINE, 0.5 ML IM/SUBCUT 09/22/2004,05/24/2001 (MENACTRA)(9 MO-55 YR) MENIN GOCOCCAL POLYSACCHARIDE A, C, Y AND W-135 DIPTHERIA TOXOID CONJUGATE VACCINE, (PF), 0.5ML, IM 12/08/2016 (RECOMBIVAX HB/ENGERIX-B)(0- 19 YRS) HEPATITIS B VACCINE 5 MCG/0.5 ML OR 10 MCG/0.5 ML PED OR ADOL 3 DOSE (PF), IM 2000,2000,2000 (VARIVAX)(12 MOS UP)VARICELL A VIRUS VACCINE (PF) 0.5 ML, SUB CUT 10/14/2008,01/08/2001 Hemophilus influenza b vacci ne (Hib), PRP-D conjugate, for booster use only, intramuscular use 12/24/2001,2000,2000,03/27 INFLUENZA VACCINE QUADRIVALE NT 6 MOS UP CELL DERIVED PF IM 04/13/2022,04/10/2021,04/04/2020,03/02 INFLUENZA VACCINE QUADRIVALE NT 6 MOS UP PF IM 03/10/2017,05/05/2016,03/06/2014 INFLUENZA VACCINE TRIVALENT SPLIT VIRUS, (6 MOS UP), 0.5ML (PF), IM 03/07/2024 Influenza, Unspecified Formulation 04/28/2021, Meningococcal Polysaccharide Vaccine, Serogroups A, C, Y, W-135, quadrivalent (Mpsv4) SQ 12/22/2010 Pneumococcal 7-valent conjug ate vaccine IM 2000,2000,2000 Pneumococcal conjugate, unsp ecified formulation 2000,2000,2000 Skin Test TB 05/23/2007, 8,06/09/2005,06/09 Social History Tobacco Use Types Packs/Day Years Used Date Smoking Tobacco: Never Assessed Comments Unknown Sex and Gender Information Value Date Recorded Sex Assigned at Not on file Legal Sex Female 11:30 AM CDT Gender Identity Not on file Sexual Orientation Not on file Plan of Treatment Health Maintenance Due Date Last Done Comments CERVICAL CANCER SCREENING 12/31/2020 HPV/Cotest (21-29) 12/31/2020 PAP SMEAR 12/31/2020 DTAP/TDAP/TD VACCINES (8 - T d or Tdap) 12/04/2030 12/04/2020, 12/22/2010, 09/22/2004, Additional history exists HEPATITIS B VACCINES Completed 2000, 2000, 2000 HPV VACCINES Completed 10/13/2015, 11/13, 03/06/2014 INFLUENZA VACCINE Completed 03/07/2024, , 04/10/2021, Additional history exists
--- OUTSIDE RECORDS SUMMARY | 2024-09-18 17:57 | XMS_ITS | Referral Summary ---
Author Organization [facility] Address [address] [place] [address] Care Team Providers Care Student Success Advisor Name Role Phone Michelle Valentino MD Primary Care Pro vider MalecekMariela MD Unavailable [phone] Allergies No known active allergies Medications SUMAtriptan [...] 06/03/2024 Assessment & Plan (06/03/2024 6:48 PM SUCTION PLATE CARRIER CLEANER): Refer to orthopedics, Dr. Isbell Bilateral bunions 06/03/2024 Assessment & Plan (06/03/2024 6:48 PM SUCTION PLATE CARRIER CLEANER): Plan as above Generalized anxiety disorder 03/27/2024 Assessment & Plan (03/27/2024 8:20 AM SUCTION PLATE CARRIER CLEANER): Chronic, uncontrolled. Start lexapro 5 mg daily. [...] 04/27/2022 Assessment & Plan (05/25/2022 9:45 AM SUCTION PLATE CARRIER CLEANER): Follow-up with Orthopedics Assessment & Plan (04/27/2022 9:53 PM SUCTION PLATE CARRIER CLEANER): Worsening pain. Suspect meniscal tear or injury. Check x ray and refer to sports medicine/ orthopedics at [facility] Iron deficiency anemia due to chronic blood loss 01/03/2022 Routine medical exam 05/22/2021 Assessment & Plan (06/03/2024 6:48 PM SUCTION PLATE CARRIER CLEANER): Plan as above Assessment & Plan (06/12/2023 3:55 PM SUCTION PLATE CARRIER CLEANER): Patient recommended exercise regularly, eat a nutritional diet. Take medications as prescribed. Labs/urine for completion. Declined scheduling 1 year apt. Assessment & Plan (05/25/2022 9:46 AM SUCTION PLATE CARRIER CLEANER): Reviewed health maintenance issues- diet, exercise, safety issues, smoking status, alcohol use, immunizations, mammogram (if over age 40), and Pap smear. Reviewed medical problems and list of medications Assessment & Plan (05/22/2021 10:57 AM SUCTION PLATE CARRIER CLEANER): Reviewed health maintenance issues- diet, exercise, safety issues, smoking status, alcohol use, immunizations, breast exam, papsmear, Reviewed medical problems and medication list. BMI 26.0-26.9,adult 05/22/2021 Assessment & Plan (05/25/2022 8:51 AM SUCTION PLATE CARRIER CLEANER): BMI Follow-up includes: nutrition counseling, exercise counseling and education provided. Assessment & Plan (04/27/2022 9:53 PM SUCTION PLATE CARRIER CLEANER): Reviewed diet- decrease caloric intake, decrease portion size, avoid snacking, and exercise most days of the week with regular walking as tolerated. Assessment & Plan (05/22/2021 10:57 AM SUCTION PLATE CARRIER CLEANER): Reviewed diet- decrease caloric intake, decrease portion size, avoid snacking, and exercise most days of the week with regular walking as tolerated. Positive depression screening 04/08/2020 Overview (10/06/2020): PHQ9 score is 11, negative SI Last Assessment & Plan: Val's PHQ-9 today in clinic was elevated, and [...] 04/08/2020 Overview (10/06/2020): Last Assessment & Plan: Val's rash on her feet is more consistent [...] 11/22/2019 Overview (10/06/2020): Last Assessment & Plan: Val has a long hx of anxiety. She [...] resources. Assessment & Plan (06/12/2023 3:46 PM SUCTION PLATE CARRIER CLEANER): Chronic problem: Patient recommended to continue Effexor as prescribed. Monitor for concerns. Von Willebrand disease, type I 12/11/2017 Overview (10/06/2020): Last Assessment & Plan: Nosebleeds have resolved. Has not had bleeding issues for months. Takes DDAVP when bleeding occurs. Plan: -Continue to monitor -DDAVP PRN bleeding Assessment & Plan (06/12/2023 3:48 PM SUCTION PLATE CARRIER CLEANER): Chronic problem: Patient to follow with Hematology, Dr. Gutierrez as recommended Assessment & Plan (05/25/2022 9:46 AM SUCTION PLATE CARRIER CLEANER): Follow-up with Hematology Assessment & Plan (05/22/2021 10:58 AM SUCTION PLATE CARRIER CLEANER): Continue DDAVP; follow up with heme-oncology Accommodative component in esotropia 07/14/2017 Migraine headache without aura 03/06/2014 Overview (10/06/2020): Last Assessment & Plan: Well controlled with topamax. Not taking maxalt due to lack of breakthrough migraines. Assessment & Plan (11/13/2023 12:30 PM CDT): The patient is a 23-year-old Afro-Bangladeshi female with migraine headaches. At this point [...] patient. Assessment & Plan (06/12/2023 3:47 PM SUCTION PLATE CARRIER CLEANER): Chronic problem: Follow with Neurology, Dr. Gongora and take Imitrex, Ajovy as prescribed. Monitor for concerns Assessment & Plan (11/28/2022 3:10 PM CDT): The patient is a 22-year-old Afro-Bangladeshi female with migraine headaches. At this point she is failed Topamax and venlafaxine. I am going to try her on Ajovy. I went ahead and gave her 1st sample today. I will see her back in a couple months. Assessment & Plan (06/02/2022 8:38 AM SUCTION PLATE CARRIER CLEANER): The patient is a 22-year-old female with [...] questions. Assessment & Plan (05/22/2021 10:58 AM SUCTION PLATE CARRIER CLEANER): Continue current medications and call if problems or side effects. WC (well child check) 03/06/2014 Overview (10/06/2020): Last Assessment & Plan: Val Sevilla is here for her adolescent well [...] 09/30/2013 Overview (10/06/2020): Last Assessment & Plan: Val has pes planus of both feet, for which she had surgery at age 10. Feels as though the curvature is getting worse again. It does not hurt or get in the way of activities. Plan: - referral to orthopedics Hyperopia 10/21/2011 Overview (10/06/2020): Last Assessment & Plan: Followed by [facility] ophtho and sees financial investment manager for other vision problems. Wears glasses. Immunizations [...] Unspecified 2000,0 2000,2000 Tdap 12/04/2020,12/22/2010 Varicella 10/14/2008,01/08/2001 Social History Tobacco Use Types Packs/Day Years [...] on file Legal Sex Female 2:43 AM SUCTION PLATE CARRIER CLEANER Gender Identity Not on file Sexual Orientation Not on file Last Filed Vital Signs Vital Sign Reading Time Taken Comments Blood Pressure 143/70 06/18/2024 2:37 PM SUCTION PLATE CARRIER CLEANER Pulse 87 06/18/2024 2:37 PM SUCTION PLATE CARRIER CLEANER Temperature 37 C (98.6 F) 06/18/2024 2:37 PM SUCTION PLATE CARRIER CLEANER Respiratory Rate 16 06/18/2024 2:37 PM SUCTION PLATE CARRIER CLEANER Oxygen Saturation 95% 06/18/2024 2:37 PM SUCTION PLATE CARRIER CLEANER Inhaled Oxygen Concentration - - Weight 73.6 kg (162 lb 3.2 oz) 06/18/2024 2:37 PM SUCTION PLATE CARRIER CLEANER Height 157.5 cm (5' 2 ) 06/18/2024 2:37 PM SUCTION PLATE CARRIER CLEANER Body Mass Index 29.67 06/18/2024 2:37 PM SUCTION PLATE CARRIER CLEANER Plan of Treatment Not on file Insurance [employer] Address: [facility] [id number] [id number] [employer] Address: [address] [place] [address] [employer] Care Teams Student Success Advisor Relationship Specialty Start Date End Date Michelle Valentino MD [address] [address] PCP - General Internal Medicine 10/01/18 Mariela Gutierrez MD [address] [place] [address] Medical Oncologist/Filbert Grower Hematology and Oncology 06/14/21
--- OUTSIDE RECORDS SUMMARY | 2024-09-18 17:57 | XMS_ITS | Clinical Summary ---
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 [employer]hew Trauma 10-3404 / / St Scrw Hex Fix Implanted:Qty: 8 on 12/13/2012 by Mike Marte MD at [facility] Bilateral : Foot [employer]hew Trauma 11-2727 / / Nut 10mm Implanted:Qty: 4 on 12/13/2012 by Mike Marte MD at [facility] Bilateral : Foot [employer]hew Trauma 10-3300 / / Cube Rancho Iliz 2 Hole Implanted:Qty: 4 on 12/13/2012 by Mike Marte MD at [facility] Bilateral : Foot [employer]hew Trauma 10-3452 / / Gavin Telescopic Grad 60mm Implanted:Qty: 2 on 12/13/2012 by Mike Marte MD at [facility] Bilateral : Foot [employer]hew Trauma 10-0104 / / Plate Conn Sh 35mm Implanted:Qty: 2 on 12/13/2012 by Mike Marte MD at [facility] Bilateral : Foot [employer]hew Trauma 10-1810 / / Wire K Ss .062 Implanted:Qty: 4 on 02/12/2013 by Mike Marte MD at [facility] Bilateral : Toe [employer] [id number] / / Description:4th & 5th Toes e ach foot 2.0mm X 14mm Cortical Screw Implanted:Qty: 2 on 04/25/2013 by Mercedes Arboleda MD at [facility] Right: Leg [employer] 4820-014-0 1 / STERILE TRAY / STERILE TRAY 2.0mm 16mm Cortical Screw Implanted:Qty: 3 on 04/25/2013 by Mercedes Arboleda MD at [facility] Right: Leg [employer] 4820-016-0 1 / STERILE TRAY / STERILE TRAY 2.0mm 8 Hole Compression Plate Implanted:Qty: 1 on 04/25/2013 by Mercedes Arboleda MD at [facility] [employer] [id number] / STERILE TRAY / STERILE TRAY Explanted Type Area Overhead Crane Technician Device Identifier Shelf Expiration Date Model / Serial / Lot Wire K Dbl End 062 X 9 Implanted:Qty: 4 on 12/13/2012 at [facility] Explanted:Qty: 2 on 04/25/2013 at [facility] ([facility]) [id number] / / Procedures Procedure Name Priority Date/Time Associated Diagnosis Comments HEPATITIS C ANTIBODY Routine 11/25/2019 9:11 AM CDT Encounter for routine child health examination with abnormal findings HIV-1 HIV-2 ANTIBODY + HIV P24 AG PANEL Routine 11/25/2019 9:11 AM CDT Encounter for routine child health examination with abnormal findings CHLAMYDIA + GC AMPLIFIED PROBE Routine 11/22/2019 9:58 AM CDT Encounter for routine child health examination with abnormal findings from Last 3 Months or Most Recently Relevant to Health Maintenance Results * HIV-1 HIV-2 ANTIBODY + HIV P24 AG PANEL (11/25/2019 9:11 AM CDT) HIV1/2 Ab + P24 Ag Non Reactive Non Reactive 11/25/2019 10:28 AM CDT [facility] Blood BLOOD SPECIMEN / Unknown Lab Venipuncture / Unknown 11/25/2019 9:11 AM CDT 11/25/2019 9:42 AM CDT Narrative [facility] - 11/25/2019 10:28 AM CDT No Laboratory evidence of HIV infection. us John Harmon MD LAB - CHEMISTRY ORD ERABLES Final Result [facility] [place] [address] * HEPATITIS C ANTIBODY (11/25/2019 9:11 AM CDT) Pathologist [facility] HCV Antibody Screen Non Reactive Non Reactive 11/25/2019 3:10 PM CDT [facility] Blood BLOOD SPECIMEN / Unknown Lab Venipuncture / Unknown 11/25/2019 9:11 AM CDT 11/25/2019 9:42 AM CDT Narrative [facility] - 11/25/2019 3:10 PM CDT Non Reactive - Antibodies to Hepatitis C virus (HCV) were not detected, result does not exclude early acute HCV infection. John Harmon MD LAB - CHEMISTRY ORD ERABLES Final Result [facility] [address] [place] [address] * CHLAMYDIA + GC AMPLIFIED PROBE (STL) (11/22/2019 9:58 AM CDT) [facility] Chlamydia Amplified Probe Negative Negative 11/25/2019 1:[address] [facility] GC Amplified Probe Negative Negative 11/25/2019 1:[address] [facility] Microbiology URINE / Unknown Collection / Unknown 11/22/2019 9:58 AM CDT 11/22/2019 4:[address] [facility] - 11/25/2019 1:48 PM CDT Results based on detection/no detection of ribosomal RNA by amplified method. John Harmon MD LAB - MICROBIOLOGY ORDERABLES Final Result [facility] [address] [place] [address], [facility] [phone] from Last 3 Months or Most Recently Relevant to Health Maintenance Insurance [employer]
--- OUTSIDE RECORDS SUMMARY | 2024-09-18 17:57 | XMS_ITS | Encounter Summary ---
Author Organization [facility] Address [address] [place] [address] Support Name Relationship Address Phone Pt. Val Sevilla Personal Relationship [address] [place] [address] Emma Sevilla Personal Relationship [address] [place] [address] Care Team Providers Care Rn Obgyn Name Role Phone Yajaira Zarate Юлия DO Unavailable [phone] Tayo Stewart MD Primary Care Provider [phone] Carolyn Maynard MD Unavailable Tayo Stewart MD Primary Care Provider [phone] Reason for Visit * Reason Onset Date Comments MEDICATION REFILL 07/01/2016 Encounter Details Date Type Department Care Team (Late st Contact Info) Description 07/01/2016 Refill [facility] - [facility] [address] [place] [address] [phone] Tayo Stewart MD [address] [place] [address] [phone] MEDICATION REFILL Social History Tobacco Use Types Packs/Day Years [...] encounter Miscellaneous Notes * Telephone Encounter - Juanita Luna APRN-CNP - 07/01/2016 12:00 PM EMERGENCY DOCTOR Will refill Prilosec. JASEN Guthrie 07/01/2016 12:00 PM. GENCY DOCTOR * Telephone Encounter - Danika Chapa - 07/01/2016 9:46 AM CST Val Harika Sevilla's, 16 y.o. female, [facility] is calling requesting medication refill. Medication: omeprazole (PRILOSEC) 20 MG capsule Last well child checkup:11/26/15 Pharmacy verified. YES IN EPIC No future appointments. GENCY DOCTOR documented in this encounter Plan of Treatment Not on file documented as of this encounter Visit Diagnoses Not on filedocumented in this encounter Care Teams Rn Obgyn Relationship Specialty Start Date End Date Tayo Stewart MD [address] [place] [id number] PCP - General Pediatrics 04/04/16 10/08/18 Tayo Stewart MD [address] [place] [id number] PCP - General Pediatrics 10/09/18 09/28/21 Yajaira Zarate DO Resident Student Resident 11/11/14 11/29/16 Carolyn Maynard MD [address] [place] [phone] Resident Student Resident 11/30/16 09/29/21 documented as of this encounter
[2024-09-18 18:52] VITALS: PULSE 92
[2024-09-18 19:06] LABS: Influenza A QL RT-PCR Negative (Negative); Influenza B QL RT-PCR Negative (Negative); RSV RNA, RT-PCR Negative (Negative); SARS-CoV-2 RNA PCR Negative (Negative)
== END 2024-09-18 20:28 | disposition home or self-care (01) ==
PROVIDERS: Physician Assistant; Emergency Provider Registered Nurse
DX: R53.1 Weakness (principal); Z20.822 Contact with and (suspected) exposure to COVID-19; D68.00 Von Willebrand disease, unspecified
CPT/HCPCS: 36415; 71046; 80053; 84443; 85025; 86850; 86900; 86901; 87637; 93005; 99284